=== PATIENT | female | born 1940 | race Caucasian/White ===

== ENCOUNTER 2024-06-01 06:29 | Day surgery (SDC) | payer MEDICARE, SELFPAY ==
[2024-05-18 12:52] VITALS: BMI 29.0
[2024-06-01] VITALS (13 sets, daily range): BP systolic 129–151; BP diastolic 68–102
[2024-06-01 08:51] LABS: ACT-LR - POC 289 Seconds (116-155)
[2024-06-01 09:08] LABS: ACT-LR - POC 265 Seconds (116-155)
--- NOTE | 2024-06-01 09:41 | ITS.CL.ABL ---
General Internal Medicine Doctor - Ablation
Ablation
Procedure Report:
ELECTROPHYSIOLOGIC STUDY AND POSSIBLE ABLATION
DATE: 06/01/24
Primary Care Provider: Dr Rizwana Crow
INDICATION:
Symptomatic Atrial Fibrillation.
Persistent
HISTORY: See H and P.
Symptomatic AF, poorly controlled with attempted medical therapy
HAS-BLED: 2
Age
Abnormal Renal Function
CHADSVASc: 3
Age
F Gender
PRESENTING RHYTHM: AF
HISTORY: See H and P.
Symptomatic AF, poorly controlled with attempted medical therapy.
ANTIARRHYTHMIC DRUG: Flecainide discontinued 3 days ago
ANTICOAGULATION: Xarelto
'TIME-OUT': called and confirmed.
SEDATION/ANESTHESIA: provided via the anesthesia department using general anesthesia.
PROCEDURE:
Ultrasound Guidance performed by la was utilized for femoral venous Vascular Access b/l.
A decapolar CS catheter was placed within the CS for mapping and pacing.
The intracardiac ultrasound catheter was positioned in the RA for continuous intracardiac ultrasound imaging.
Heparin bolus and infusion to target ACT at 300 -350 seconds was administered. Transseptal puncture was performed. This entailed advancing a sheath with dilator into the superior vena cava and withdrawing both (monitoring intracardiac ultrasound,
fluoroscopy and tip pressure) with the tip oriented toward the atrial septum. The fossa ovalis was engaged (indicated by sudden displacement of the sheath tip as well as tenting of the fossa seen on intracardiac ultrasound).
AcOFERTALDIAross transseptal system was used. Left atrial catheter position was confirmed by echocardiographic imaging, pressure monitoring and fluoroscopy. The sheath was advanced over the dilator and positioned in the left atrium.
The multipolar mapping catheter was initially positioned through the transseptal sheath for high density mapping.
Geometry and voltage mapping was performed using the MailPix multipolar grid catheter. Navex was utilized for three-dimensional electroanatomical mapping.
A 3-D map was created using Navex. A 3-D reconstructed CT image was compared to the 3-D Navex map to assist in anatomic evaluation, mapping and ablation.
The [employer] Pulse Select PFA catheter and system was used for cardiac ablation. Catheter positioning was guided and confirmed using both I.C.E. and fluoroscopy.
PV isolation approach was used to electrically isolate each PV ostia. Following this, additional energy applications/additional ablation set was required to accomplish wide area circumferential ablation around each of the pulmonary vein sets and to
electrically isolate the posterior wall of the left atrium.
CV restored SR.
Remapping with the MailPix multipolar grid catheter found that all PVPs were eliminated at each vein demonstrating entrance block. Also pacing from the multipolar mapping catheter around the the circumference of the ostia was performed at 10 ma and
2.0 msec output to assess for exit block. This demonstrated electrical isolation at each of the pulmonary vein ostia LSPV, LIPV, RSPV, RIPV. Similarly, there is entrance and exit block from the posterior wall of the left atrium.
Programmed electrical stimulation failed to induce any sustained arrhythmias.
I.C.E. :
Pre-Ablation Post-Ablation
LVEF: 55 % 55 %
WMA: none none
Pericardial effusion: none none
COMPLICATIONS:
NOne
SUMMARY:
- Mapping and ablation to isolate the PVs
- Additional AF ablation set after PVI.
- 3-D Electroanatomical Mapping
- Intracardiac Ultrasound
Post ablation, I discussed today's findings and results with the patient's son, Vasile.
RECOMMENDATIONS:
- Observe in monitored bed.
- Maintain oral anticoagulation.
- Discontinue flecainide (last dose 3 days ago) and start amiodarone 200 mg twice daily for 30 days followed by 200 mg daily. Will plan to continue this for 6 to 12 months post ablation given her marked atrial enlargement. There can be an
opportunity if she maintains sinus rhythm for us to discontinue amiodarone in the future.
- Office visit with me in 3-4 months.
Copy to:
Dr Rizwana Crow
--- NOTE | 2024-06-01 13:30 | W.PN.UPDATE ---
Update Note
Progress Note Update
84 yo WF s/p PVI (same day) She feels good, no cp, sob, nicole diet, voiding, amb w/o dizziness, EKG SR with frequent PAC's, b/l groins VASCADE c/d/i, soft. She will continue xarelto dose at 4pm at home. She will stop flecainide and start amiodarone
200mg bid for 2 weeks then decrease to daily. She will f/u Dr. Campos in 3 mo. She is for d/c home after 1pm.
SUMMARY:
- Mapping and ablation to isolate the PVs
- Additional AF ablation set after PVI.
- 3-D Electroanatomical Mapping
- Intracardiac Ultrasound
Post ablation, I discussed today's findings and results with the patient's son, Vasile.
RECOMMENDATIONS:
- Observe in monitored bed.
- Maintain oral anticoagulation.
- Discontinue flecainide (last dose 3 days ago) and start amiodarone 200 mg twice daily for 30 days followed by 200 mg daily. Will plan to continue this for 6 to 12 months post ablation given her marked atrial enlargement. There can be an
opportunity if she maintains sinus rhythm for us to discontinue amiodarone in the future.
- Office visit with me in 3-4 months.
Copy to:
Dr Rizwana Crow
== END 2024-06-01 13:45 | disposition home or self-care (01) ==
LOC: CATH 06:29
PROVIDERS: ATTENDING PHYSICIAN Internal Medicine Cardiovascular Disease
DX: I48.19 Other persistent atrial fibrillation (principal); I12.9 Hypertensive chronic kidney disease with stage 1 through stage 4 chronic kidney disease, or unspecified chronic kidney disease; E78.5 Hyperlipidemia, unspecified; I34.0 Nonrheumatic mitral (valve) insufficiency; N18.30 Chronic kidney disease, stage 3 unspecified; Z79.899 Other long term (current) drug therapy; Z79.01 Long term (current) use of anticoagulants; Z90.710 Acquired absence of both cervix and uterus
CPT/HCPCS: C1732; C1760; C1894; C1733; C1892; C1730; C1766; 76937; 85347; 86900; 86901; 93005; 93656; 93657; C1769

== ENCOUNTER → 2024-12-20 13:41 | Outpatient (REF) | payer MEDICARE, SELFPAY | LOC: RCS 13:41 | PROVIDERS: ATTENDING PHYSICIAN Internal Medicine Cardiovascular Disease | DX: I48.19 Other persistent atrial fibrillation (principal) | CPT/HCPCS: 93306 ==

== ENCOUNTER → 2025-01-05 06:27 | Outpatient (REF) | payer MEDICARE, SELFPAY | LOC: RAD 06:27 | PROVIDERS: ATTENDING PHYSICIAN Nurse Practitioner | DX: I65.23 Occlusion and stenosis of bilateral carotid arteries (principal); I48.19 Other persistent atrial fibrillation; I10 Essential (primary) hypertension | CPT/HCPCS: 93880 ==